=== PATIENT | male | born 1950 | race Two or more races ===

== ENCOUNTER 2017-09-02 14:54 | Emergency (ER) | payer OTHER ==
[~2017-09-02] VITALS: Ht 177.8 cm; Wt 89.0 kg
[~2017-09-02 14:54] MED LIST: CRESTOR10 MG OR; METFORMIN500 MG OR; MICARDIS80 MG OR
[2017-09-02] MEDS ORDERED: TORADOL PO (16:01)
[2017-09-02] MEDS ORDERED: MEDDOSEPAK PO (16:01)
[2017-09-02 16:05] VITALS: BP 131/76
== END 2017-09-02 16:05 | disposition home or self-care (01) | DRG 556 ==
LOC: ED 14:54
DX: M25.511 Pain in right shoulder (principal); R07.89 Other chest pain; E11.9 Type 2 diabetes mellitus without complications